=== PATIENT | male | born 1970 | race American Indian/Alaskan Native ===

== ENCOUNTER 2020-01-14 19:14 | Observation (INO) | payer SELFPAY ==
[2020-01-14] MEDS ORDERED: ASPIRIN 325 MG TAB PO ONE (19:36)
--- NOTE | 2020-01-14 20:04 | XRay Report ---
CHEST 1 VIEW 01/14/2020 7:56 PM INDICATION / CLINICAL INFORMATION: Chest Pain. COMPARISON: None available. FINDINGS: SUPPORT DEVICES: None. HEART / MEDIASTINUM: No significant abnormality. LUNGS / PLEURA: No significant pulmonary or pleural abnormality. No pneumothorax. ADDITIONAL FINDINGS: No significant additional findings. IMPRESSION: 1. No acute findings. Signer Name: Vern Alegria MD Signed: 01/14/2020 7:59 PM Workstation Name: [id number]
[2020-01-14 20:09] LABS: Basophils % (Auto) 0.4 % (0.0-1.8); Eosinophils # (Auto) 0.1 K/mm3 (0.0-0.4); Eosinophils % (Auto) 1.8 % (0.0-4.3); Hemoglobin 14.3 gm/dl (11.8-15.2); Lymphocytes % (Auto) 28.4 % (13.4-35.0); Mean Corpuscular HGB Conc 35 % (32-34); Mean Corpuscular Volume 103 fl (84-94); Monocytes # (Auto) 0.4 K/mm3 (0.0-0.8); Monocytes % (Auto) 5.6 % (0.0-7.3); Platelet Count 153 K/mm3 (140-440); Red Blood Count 3.97 M/mm3 (3.65-5.03); Red Cell Distribution Width 13.4 % (13.2-15.2)
[2020-01-14 20:24] LABS: BUN/Creatinine Ratio 12; Blood Urea Nitrogen 13 mg/dL (9-20); Calcium 8.8 mg/dL (8.4-10.2); Hemolysis Index 12
[2020-01-14] MEDS ORDERED: ALUM-MAG HYDROXIDE-SIMETHICONE 200-200-20MG/5ML ORAL LIQD 30 ML PO ONE (21:53)
[2020-01-14] MEDS ORDERED: PANTOPRAZOLE 40 MG INJ IV ONE (21:53)
[2020-01-14] MEDS ORDERED: WATER FOR INJ Sterile (PF) 10 ML ONE (22:04)
--- NOTE | 2020-01-14 22:09 | Emergency Department Report ---
ED Chest Pain HPI - General Chief Complaint: Chest Pain Stated Complaint: CHEST PAIN PUI?: No Time Seen by Provider: 01/14/20 21:45 Source: patient, EMS Mode of arrival: Stretcher Limitations: No Limitations - History of Present Illness Initial Comments: Chief complaint: "It is just gas." Mr. Mack is a 49 yo male with history of hypertension, pulmonary embolism and erectile dysfunction who presents with chest pain after eating last night. Pain was dull left-sided radiating to the right side. He also had left arm discomf ort. He denies palpitations. He denies shortness of breath. Each episode lasted 1 to 2 minutes. The episodes occurred at rest. First episode occurred after eating barbecue food. He took Viagra last night. This medicine was prescribed to him by his physician. He was concerned that the Viagra may be the cause of the chest pain. He did not have chest pain during intercourse. Today the chest pain episode lasted longer. Consequently he called EMS. He is now chest pain-free. No previous history of heart disease. He was treated for pulmonary embolism 4 years ago. No longer requires anticoagulation. He is on both carvedilol and another antihypertensive medication. His home pharmacy did not have refill ready for the second antihypertensive medicine. Consequently he has elected to double his dose of Coreg without doctors approval. His second medication should be ready on Thursday. He has history of tobacco and marijuana use. MD Complaint: chest pain -: Gradual, Last night Onset: during rest Pain Location: left chest Pain Radiation: none, LUE Severity: mild Severity scale (0 -10): 3 Quality: dull Consistency: now resolved Improves With: antacids Worsens With: nothing Treatments Prior to Arrival: aspirin - Related Data Allergies Allergy/AdvReac Type Severity Reaction Status Date / Time No Known Allergies Allergy Verified 01/14/20 21:45 Heart Score - HEART Score History: Slightly suspicious EKG: Normal Age: 45-65 Risk factors: 1-2 risk factors Troponin: < normal limit HEART Score: 2 ED Review of Systems ROS: Stated complaint: CHEST PAIN Other details as noted in HPI Comment: All other systems reviewed and negative Constitutional: denies: fever, malaise Respiratory: denies: cough, shortness of breath, wheezing Cardiovascular: chest pain Gastrointestinal: denies: abdominal pain, nausea, vomiting ED Past Medical Hx - Past Medical History Previous Medical History?: Yes Hx Hypertension: Yes Additional medical history: Pulmonary Embolism - Surgical History Past Surgical History?: No - Family History Family history: hypertension - Social History Smoking Status: Current Every Day Smoker Substance Use Type: Marijuana ED Physical Exam - General Limitations: No Limitations General appearance: alert, in no apparent distress, other (Pleasant, jovial no acute distress appears comfortable) - Head Head exam: Present: atraumatic, normocephalic - Eye Eye exam: Present: normal appearance - ENT ENT exam: Present: mucous membranes moist - Neck Neck exam: Present: normal inspection, full ROM - Respiratory Respiratory exam: Present: normal lung sounds bilaterally. Absent: respiratory distress, wheezes, rales, rhonchi - Cardiovascular Cardiovascular Exam: Present: regular rate, normal rhythm, normal heart sounds. Absent: systolic murmur, diastolic murmur, rubs, gallop - GI/Abdominal GI/Abdominal exam: Present: soft, normal bowel sounds. Absent: distended, tenderness, guarding, rebound - Rectal Rectal exam: Present: deferred - Extremities Exam Extremities exam: Present: normal inspection - Neurological Exam Neurological exam: Present: alert, oriented X3 - Psychiatric Psychiatric exam: Present: normal affect, normal mood - Skin Skin exam: Present: warm, dry, intact, normal color. Absent: rash ED Course Vital Signs 01/14/20 01/14/20 19:28 19:42 Temperature 98.2 F Pulse Rate 54 L Respiratory 12 Rate Blood Pressure 161/115 O2 Sat by Pulse 99 Oximetry ED Medical Decision Making - Lab Data Result diagrams: 01/14/20 19:38 01/14/20 19:38 Laboratory Results - last 24 hr 01/14/20 01/14/20 19:38 19:38 WBC 7.2 RBC 3.97 Hgb 14.3 Hct 41.0 MCV 103 H MCH 36 H MCHC 35 H RDW 13.4 Plt Count 153 Lymph % (Auto) 28.4 [place] % (Auto) 5.6 Eos % (Auto) 1.8 Baso % (Auto) 0.4 Lymph # 2.0 [place] # 0.4 Eos # 0.1 Baso # 0.0 Seg Neutrophils % 63.8 Seg Neutrophils # 4.6 Sodium 139 Potassium 3.3 L Chloride 105.8 Carbon Dioxide 19 L Anion Gap 18 BUN 13 Creatinine 1.1 Estimated GFR > 60 BUN/Creatinine Ratio 12 Glucose 113 H Calcium 8.8 Troponin T < 0.010 - EKG Data 01/14/20 22:12 EKG interpreted by me EKG obtained 1920 Sinus bradycardia rate 55 bpm normal axis prolonged MN interval normal QTC no ST elevation - Radiology Data Radiology results: report reviewed Chest radiograph: No acute findings - Medical Decision Making Chest pain: Differential diagnosis includes acute coronary syndrome, GERD, medication effect considering patient has increased carvedilol dose. Without persistent pain I do not suspect pulmonary embolism. Patient may have chest discomfort due to bradycardia and increase carvedilol dosing. Due to upward trendindg troponin values, I felt it was prudent to admit patient to rule out coronary artery disease. First troponin negative. Second troponin 0.018. Patient is admitted to the hospital service. patient received aspirin via EMS. Patient is currently chest pain-free. Critical care attestation.: If time is entered above; I have spent that time in minutes in the direct care of this critically ill patient, excluding procedure time. ED Disposition Clinical Impression: Bradycardia, Acute coronary syndrome Disposition: OP ADMIT IP TO THIS HOSP Is pt being admited?: Yes Does the pt Need Aspirin: No Condition: Stable Referrals: LINK HERNANDEZ MD [Staff Physician] - 3-5 Days
[2020-01-15] MEDS ORDERED: NITROGLYCERIN 2% OINT 1 GM TP ONE (00:08)
[2020-01-15] MEDS ORDERED: ONDANSETRON 4 MG/2 ML INJ IV PRN (00:14)
[2020-01-15] MEDS ORDERED: ACETAMINOPHEN 325 MG TAB PO PRN (00:17)
[2020-01-15] MEDS ORDERED: NITROGLYCERIN 0.4 MG TAB SUBL SL PRN (00:17)
[2020-01-15] MEDS: HEPARIN 5,000 UNIT/1 ML VIAL SUB-Q SCH ×2 (00:38→14:00)
--- NOTE | 2020-01-15 06:39 | History and Physical Report ---
History of Present Illness Date of examination: 01/14/20 Date of admission: 01/14/20 22:43 Chief complaint: Chest pain History of present illness: 49 year old male presnting with pressure like chest pain that radiates to the left arm and associated with dIaphoresis but no shortness of breath, nausea and vomiting. Pain started the day prior to presentation, there is no history of fever, cough , chills and pain is releaved with pain medication Past History Past Medical History: hypertension, pulmonary embolism Past Surgical History: No surgical history Social history: smoking, other (MARIJUANA) Family history: no significant family history Medications and Allergies Allergies Allergy/AdvReac Type Severity Reaction Status Date / Time No Known Allergies Allergy Verified 01/14/20 21:45 Active Meds: Active Medications Acetaminophen (Tylenol) 650 mg PO Q4H PRN PRN Reason: Pain, Mild (1-3) Aspirin (Aspirin) 325 mg PO QDAY [facility] Heparin Sodium (Porcine) (Heparin) 5,000 unit SUB-Q Q12HR [facility] Last Admin: 01/15/20 00:38 Dose: 5,000 unit Documented by: Morphine Sulfate (Morphine) 2 mg IV Q5MIN PRN PRN Reason: Chest Pain unrelieved by NTG Nitroglycerin (Nitro-Bid 2%) 1 inch TP QIDNTG [facility]; Protocol Nitroglycerin (Nitrostat) 0.4 mg SL .Q5MIN PRN PRN Reason: Chest Pain Ondansetron HCl (Zofran) 4 mg IV Q8H PRN PRN Reason: Nausea And Vomiting Review of Systems Constitutional: sweats, no weight loss, no weight gain, no fever, no chills, no anorexia, no fatigue, no weakness, no malaise Eyes: bilateral: other (NO BILATERAL EYE SYMPTOMS) Ears, nose, mouth and throat: no ear pain, no ear discharge, no tinnitis, no decreased hearing, no nose pain, no nasal congestion, no nasal discharge, no sinus pressure, no dental pain, no mouth pain, no dysphagia, no hoarseness, no sore throat, no swelling in mouth, no voice changes, no headache, no vertigo Cardiovascular: chest pain, high blood pressure, no palpitations, no rapid/irregular heart beat, no lightheadedness, no shortness of breath Respiratory: no cough, no cough with sputum, no hemoptysis, no congestion, no wheezing, no pleurisy, no pain on inspiration Gastrointestinal: no nausea, no vomiting, no diarrhea, no constipation, no mag[place] e in bowel habits, no hematemesis, no melena, no hematochezia, no loss of appetite, no early satiety, no heartburn, no indigestion Genitourinary Male: no dysuria, no hematuria, no flank pain, no discharge, no urinary frequency, no urinary hesitancy, no nocturia, no incontinence, no erectile dysfunction, no testicular pain Rectal: no pain, no itching Musculoskeletal: no neck stiffness, no neck pain, no shooting arm pain, no arm numbness/tingling, no low back pain, no shooting leg pain, no leg numbness/tingling, no hot joints, no morning stiffness, no muscle weakness, no muscle cramps, no myalgias, no atrophy, no frequent falls, no fractures Integumentary: no rash, no pruritis, no redness, no sores, no wounds, no jaundice, no boils, no bullae, no lesions, no darkening of skin, no depigmentat ion Neurological: no paralysis, no weakness, no parathesias, no numbness, no tingling, no seizures, no syncope, no tremors, no vertigo, no headaches, no migraines, no convulsions, no aphasia, no change in speech, no change in mentation, no confusion, no memory loss Psychiatric: no anxiety, no memory loss, no change in sleep habits, no sleep disturbances, no insomnia, no hypersomnia Endocrine: no cold intolerance, no polyphagia, no palpatations Hematologic/Lymphatic: no easy bruising, no easy bleeding, no lymphadenopathy, no lymphedema Allergic/Immunologic: no urticaria, no persistent infections, no anaphylaxis Exam - Constitutional Vitals: Temp Pulse Resp BP Pulse Ox 98.5 F 54 L 18 143/101 97 01/15/20 05:21 01/15/20 05:21 01/15/20 05:21 01/15/20 05:21 01/15/20 05:21 General appearance: Present: mild distress - EENT Eyes: Present: PERRL ENT: hearing intact, clear oral mucosa, dentition normal - Neck Neck: Present: supple, normal ROM - Respiratory Respiratory effort: normal - Cardiovascular Rhythm: regular Heart Sounds: Present: S1 & S2. Absent: gallop, systolic murmur, diastolic murmur - Extremities Extremities: no ischemia, No edema Peripheral Pulses: within normal limits - Abdominal General gastrointestinal: Present: soft, non-tender, distended. Absent: tender, non-distended, rigid, hepatomegaly, splenomegaly Male genitourinary: Present: deferred - Rectal Rectal Exam: deferred - Integumentary Integumentary: Present: clear, warm, dry. Absent: erythema, jaundice, rash - Musculoskeletal Musculoskeletal: strength equal bilaterally - Psychiatric Psychiatric: appropriate mood/affect HEART Score - HEART Score EKG: Normal Age: 45-65 Risk factors: 1-2 risk factors Troponin: Troponin T 0.018 ng/mL (0.00-0.029) 01/14/20 21:55 Troponin: < normal limit - Critical Actions Critical Actions: 0-3 pts:0.9-1.7%risk of adverse cardiac event.Candidate for discharge Results - Labs CBC & Chem 7: 01/14/20 19:38 01/14/20 19:38 Labs: Laboratory Last Values WBC 7.2 K/mm3 (4.5-11.0) 01/14/20 19:38 RBC 3.97 M/mm3 (3.65-5.03) 01/14/20 19:38 Hgb 14.3 gm/dl (11.8-15.2) 01/14/20 19:38 Hct 41.0 % (35.5-45.6) 01/14/20 19:38 MCV 103 fl (84-94) H 01/14/20 19:38 MCH 36 pg (28-32) H 01/14/20 19:38 MCHC 35 % (32-34) H 01/14/20 19:38 RDW 13.4 % (13.2-15.2) 01/14/20 19:38 Plt Count 153 K/mm3 (140-440) 01/14/20 19:38 Lymph % (Auto) 28.4 % (13.4-35.0) 01/14/20 19:38 [place] % (Auto) 5.6 % (0.0-7.3) 01/14/20 19:38 Eos % (Auto) 1.8 % (0.0-4.3) 01/14/20 19:38 Baso % (Auto) 0.4 % (0.0-1.8) 01/14/20 19:38 Lymph # 2.0 K/mm3 (1.2-5.4) 01/14/20 19:38 [place] # 0.4 K/mm3 (0.0-0.8) 01/14/20 19:38 Eos # 0.1 K/mm3 (0.0-0.4) 01/14/20 19:38 Baso # 0.0 K/mm3 (0.0-0.1) 01/14/20 19:38 Seg Neutrophils % 63.8 % (40.0-70.0) 01/14/20 19:38 Seg Neutrophils # 4.6 K/mm3 (1.8-7.7) 01/14/20 19:38 Sodium 139 mmol/L (137-145) 01/14/20 19:38 Potassium 3.3 mmol/L (3.6-5.0) L 01/14/20 19:38 Chloride 105.8 mmol/L (98-107) 01/14/20 19:38 Carbon Dioxide 19 mmol/L (22-30) L 01/14/20 19:38 Anion Gap 18 mmol/L 01/14/20 19:38 BUN 13 mg/dL (9-20) 01/14/20 19:38 Creatinine 1.1 mg/dL (0.8-1.3) 01/14/20 19:38 Estimated GFR > 60 ml/min 01/14/20 19:38 BUN/Creatinine Ratio 12 % 01/14/20 19:38 Glucose 113 mg/dL (75-100) H 01/14/20 19:38 Calcium 8.8 mg/dL (8.4-10.2) 01/14/20 19:38 Troponin T 0.018 ng/mL (0.00-0.029) 01/14/20 21:55 [place]/IV: Voiding Method Toilet IV Catheter Type [right ac] Peripheral IV Assessment and Plan - Patient Problems (1) Acute coronary syndrome Current Visit: Yes Status: Acute Plan to address problem: 1. SERIAL CARDIAC ENZYME 2. NPO 3. LEXISCAN STRESS TEST 4. NITROGLYCERIN PASTE AND SUBLINGUAL 5. ASPIRIN PO 6. I.V MORPHIN FOR PAIN 7. I.V ZOFRAN FOR NAUSEA AND VOMITING 8 TYLENOL FOR HEADACHE 9. OXYGEN BY NASAL CANAL (2) Hypokalemia Current Visit: Yes Status: Acute Plan to address problem: KCL REPLACEMENT
[2020-01-15 07:05] LABS: Creatine Kinase MB 2.7 ng/mL (0.0-4.0)
[2020-01-15] MEDS: MORPHINE 2 MG/1 ML INJ IV PRN ×2 (08:43→13:24)
[2020-01-15] MEDS: ASPIRIN 325 MG TAB PO SCH ×2 (08:44→09:29)
[2020-01-15] MEDS: NITROGLYCERIN 2% OINT 1 GM TP SCH ×3 (09:29→14:00)
--- NOTE | 2020-01-15 11:01 | Discharge Summary ---
Providers - Providers Date of Admission: 01/14/20 22:43 Attending physician: NATASHA NASCIMENTO MD [facility] Reason for admission: chest pain Condition: Stable Hospital course: 49 year old male presnting with pressure like chest pain that radiates to the left arm and associated with dIaphoresis but no shortness of breath, nausea and vomiting. Pain started the day prior to presentation, there is no history of fever, cough , chills and pain is relieved with pain medication Patient states that he never had any exertional chest pain, no shortness of breath. No further chest pain since admission. 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 He believes the pain he had was secondary to gas HE WILL FOLLOW WITH CARDIOLOGY OUTPATIENT I ADVISED HIM NO STRENOUS ACTIVITY TILL HE SEES CARDIOLOGY BP was elevated and meds administered for control. Electrolytes replaced. Atypical chest pain HTN HYPOKALEMIA Disposition: - TO HOME OR SELFCARE Time spent for discharge: 35 mins Core Measure Documentation - Palliative Care Palliative Care/ Comfort Measures: Not Applicable - Core Measures Any of the following diagnoses?: none Exam - Constitutional Vitals: Temp Pulse Resp BP Pulse Ox 98.3 F 57 L 20 122/86 98 01/15/20 08:11 01/15/20 08:11 01/15/20 08:11 01/15/20 08:11 01/15/20 08:11 General appearance: Present: no acute distress - EENT Eyes: Present: PERRL, EOM intact ENT: hearing intact, clear oral mucosa - Neck Neck: Present: supple, normal ROM - Respiratory Respiratory effort: normal Respiratory: bilateral: CTA - Cardiovascular Rhythm: regular Heart Sounds: Present: S1 & S2. Absent: systolic murmur, diastolic murmur - Extremities Extremities: no ischemia, pulses intact, No edema, normal temperature, Full ROM Peripheral Pulses: within normal limits - Abdominal General gastrointestinal: Present: soft, non-tender, non-distended, normal bowel sounds - Integumentary Integumentary: Present: clear, warm - Musculoskeletal Musculoskeletal: strength equal bilaterally - Psychiatric Psychiatric: appropriate mood/affect, intact judgment & insight - Neurologic Neurologic: CNII-XII intact, moves all extremities - Allied Health Allied health notes reviewed: nursing, social work Plan Activity: advance as tolerated, fall precautions Diet: low fat Special Instructions: record daily weights, record daily BP diary Additional Instructions: CONTINUE YOUR CURRENT HOME MEDS Follow up with: LINK HERNANDEZ MD [Staff Physician] - 3-5 Days Prescriptions: Pantoprazole [Protonix] 40 mg PO QDAY #30 tablet Simethicone 125 mg PO BID #60 tab.chew
[2020-01-15 12:44] VITALS: BP 152/110
[2020-01-15] MEDS ORDERED: SIMETHICONE 80 MG CHEW TAB PO PRN (13:21)
[2020-01-15] MEDS ORDERED: NIFEdipine XL 60 MG TAB PO SCH (13:30)
[2020-01-15] MEDS ORDERED: carvediloL 25 MG TAB PO SCH (14:00)
[2020-01-15] MEDS ORDERED: PANTOPRAZOLE 40 MG INJ IV SCH (14:00)
[2020-01-15 15:02] LABS: Creatine Kinase MB 2.8 ng/mL (0.0-4.0)
[2020-01-15 15:58] LABS: Chol/HDL Ratio 3.95 %
== END 2020-01-15 15:30 | disposition home or self-care (01) ==
LOC: ED 19:14 → 4A 22:43
PROVIDERS: ADMIT Internal Medicine; ATTEND Internal Medicine
DX: R07.89 Other chest pain (principal); I24.9 Acute ischemic heart disease, unspecified; E87.6 Hypokalemia; I10 Essential (primary) hypertension; R00.1 Bradycardia, unspecified; F17.200 Nicotine dependence, unspecified, uncomplicated; Z86.711 Personal history of pulmonary embolism; Z79.899 Other long term (current) drug therapy
CPT/HCPCS: 36415; 71045; 80048; 80061; 82550; 82553; 84484; 85025; 93005; 96372; 96374; 96375; 96376; 99285; C9113; G0378; J1644; J2270

== ENCOUNTER 2020-05-06 17:45 | Emergency (ER) | payer SELFPAY ==
[2020-05-06 18:37] VITALS: BP 123/102
== END 2020-05-06 18:36 | disposition left against medical advice (07) ==
LOC: ED 17:45
DX: R30.0 Dysuria (principal); Z53.21 Procedure and treatment not carried out due to patient leaving prior to being seen by health care provider

== ENCOUNTER 2020-12-30 09:34 | Emergency (ER) | payer SELFPAY ==
[2020-12-30 09:53] VITALS: BP 175/124
--- NOTE | 2020-12-30 10:27 | XRay Report ---
XR chest routine 2V INDICATION / CLINICAL INFORMATION: shortness of breath. COMPARISON: 01/17/2020 FINDINGS: SUPPORT DEVICES: None. HEART /PULMONARY VASCULATURE: No significant abnormality. LUNGS / PLEURA: New airspace opacities of the right lower lobe. No pneumothorax. ADDITIONAL FINDINGS: No significant additional findings. IMPRESSION: Right basilar airspace opacities, concerning for pneumonia. Signer Name: Timothy Laureano MD Signed: 12/30/2020 10:23 AM Workstation Name: [id number]
[2020-12-30 10:44] LABS: Basophils % (Auto) 0.5 % (0.0-1.8); Eosinophils # (Auto) 0.1 K/mm3 (0.0-0.4); Hematocrit 37.8 % (35.5-45.6); Hemoglobin 12.8 gm/dl (11.8-15.2); Lymphocytes # (Auto) 1.4 K/mm3 (1.2-5.4); Lymphocytes % (Auto) 22.6 % (13.4-35.0); Mean Corpuscular HGB Conc 34 % (32-34); Mean Corpuscular Volume 106 fl (84-94); Monocytes # (Auto) 0.3 K/mm3 (0.0-0.8); Monocytes % (Auto) 5.3 % (0.0-7.3); Platelet Count 126 K/mm3 (140-440); Red Blood Count 3.56 M/mm3 (3.65-5.03); Red Cell Distribution Width 13.2 % (13.2-15.2)
[2020-12-30 10:57] LABS: Alanine Aminotransferase 14 units/L (7-56); Albumin 3.7 g/dL (3.9-5); BUN/Creatinine Ratio 12; Blood Urea Nitrogen 14 mg/dL (9-20); Calcium 8.4 mg/dL (8.4-10.2); Hemolysis Index 2
== END 2020-12-30 10:30 | disposition left against medical advice (07) ==
LOC: ED 09:34
DX: R06.00 Dyspnea, unspecified (principal); Z53.21 Procedure and treatment not carried out due to patient leaving prior to being seen by health care provider
CPT/HCPCS: 36415; 71046; 80053; 83880; 84484; 85025